=== PATIENT | male | born 1990 | race Two or more races ===

== ENCOUNTER 2021-01-08 05:50 | Inpatient (IN) | payer OTHER ==
[~2021-01-08] VITALS: Ht 160 cm; Wt 70.5 kg
[2021-01-08 06:44] LABS: BASOPHILS % (AUTO) 0.7 % (0.0-2.0); EOSINOPHILS % (AUTO) 0.8 % (1.0-6.0); HEMATOCRIT 43.1 % (41-53); HEMOGLOBIN 14.4 g/dL (13.5-17.5); LYMPHOCYTES # (AUTO) 2.4 K/uL (1.0-4.8); LYMPHOCYTES % (AUTO) 27.4 % (22.0-44.0); MEAN CORPUSCULAR HEMOGLOBIN 30.4 pg (26.0-34.0); MEAN CORPUSCULAR HGB CONC 33.4 G/dL (31.0-37.0); MEAN CORPUSCULAR VOLUME 91 fL (80-100); MONOCYTES # (AUTO) 0.7 K/uL (0.1-1.0); MONOCYTES % (AUTO) 8.1 % (2.0-9.0); NEUTROPHILS # (AUTO) 5.6 K/uL (1.8-7.7); PLATELET COUNT (AUTO) 336 K/uL (150-450); RED BLOOD CELL COUNT(AUTO) 4.73 MIL/uL (4.50-5.90); RED CELL DISTRIBUTION WIDTH 14.2 % (11.5-14.5)
[2021-01-08 06:55] LABS: ANION GAP 7 mmol/L (8-16); CALCIUM, TOTAL 8.7 mg/dL (8.8-10.5); CARBON DIOXIDE 28 mmol/L (22-29); CHLORIDE 105 mmol/L (98-107); CREATININE 0.77 mg/dL (0.60-1.30); GLOMERULAR FILTR. RATE CALC > 60 mL/min (>60); GLUCOSE,RANDOM 96 mg/dL (70-110); POTASSIUM 4.4 mmol/L (3.5-5.1); SODIUM SERUM 140 mmol/L (136-145); UREA NITROGEN, BLOOD 18 mg/dL (7-18)
[2021-01-08 07:05] LABS: COVID AG,FIA SOURCE NASOPHARYNGEAL
[2021-01-08 07:09] LABS: ALANINE AMINOTRANSFERASE 26 U/L (12-78); ALBUMIN 3.3 g/dL (3.4-5.0); ALKALINE PHOSPHATASE 62 U/L (46-116); ASPARTATE AMINOTRANSFERASE 12 U/L (15-37); BILIRUBIN,TOTAL 0.5 mg/dL (0.1-1.0); TOTAL PROTEIN, SERUM 7.1 g/dL (6.4-8.2)
[2021-01-08] MEDS ORDERED: ONDANSETRON HCL 4 MG/2 ML VIAL IVP PRN ×3 (07:45→15:45)
[2021-01-08] MEDS ORDERED: ACETAMINOPHEN 325 MG TABLET PO PRN ×5 (07:45→15:45)
[2021-01-08] MEDS ORDERED: 0.9% SODIUM CHLORIDE 10 ML SYRINGE IVP PRN (07:45)
[2021-01-08 09:19] VITALS: BP 109/75
[2021-01-08] MEDS ORDERED: PROMETHAZINE HCL 25 MG TABLET PO PRN ×2 (11:00→15:45)
[2021-01-08] MEDS ORDERED: IPRATROPIUM BROMIDE 0.5 MG/2.5 ML NEB SOLUTION NEB PRN ×2 (11:00→15:45)
[2021-01-08] MEDS ORDERED: TraZODone HCL 50 MG TABLET PO PRN ×2 (11:00→15:45)
[2021-01-08] MEDS ORDERED: DICYCLOMINE HCL 10 MG CAPSULE PO PRN ×2 (11:00→15:45)
[2021-01-08] MEDS ORDERED: BACLOFEN 10 MG TABLET PO PRN (11:00)
[2021-01-08] MEDS ORDERED: ALBUTEROL SULFATE 2.5 MG/0.5 ML NEB SOLUTION NEB PRN ×2 (11:00→15:45)
[2021-01-08] MEDS ORDERED: BISACODYL 10 MG RECTAL RECTAL SUPPOSITORY PR PRN ×2 (11:00→15:45)
[2021-01-08] MEDS ORDERED: CloNIDine HCL 0.1 MG TABLET PO PRN ×2 (11:00→15:45)
[2021-01-08] MEDS ORDERED: ZOLPIDEM TARTRATE 5 MG TABLET PO PRN ×2 (11:00→15:45)
[2021-01-08] MEDS ORDERED: HydrOXYzine PAMOATE 50 MG CAPSULE PO PRN (11:00)
[2021-01-08] MEDS ORDERED: MAGNESIUM HYDROXIDE SUSPENSION 30 ML UDCUP PO PRN ×2 (11:00→15:45)
[2021-01-08] MEDS ORDERED: LOPERAMIDE HCL 2 MG/15 ML SUSPENSION UDCUP PO PRN ×2 (11:00→15:45)
[2021-01-08] MEDS ORDERED: MAG HYDROX/AL HYDROX/SIMETH ES 30 ML SUSPENSION UDCUP PO PRN ×2 (11:00→15:45)
[2021-01-08] MEDS ORDERED: IBUPROFEN 600 MG TABLET PO PRN (11:00)
[2021-01-08] MEDS: SODIUM CHLORIDE 0.45% 1,000 ML IV SCH ×2 (11:22→23:17)
[2021-01-08] MEDS ORDERED: SODIUM CHLORIDE 0.45% 1,000 ML IV SCH (15:45)
[2021-01-08] MEDS ORDERED: ROPINIRole HCL 0.25 MG TABLET PO ONE (15:45)
[2021-01-08] MEDS ORDERED: HEPARIN SODIUM,PORCINE 5,000 UNITS/ML VIAL SQ SCH (16:00)
[2021-01-08] MEDS: HEPARIN SODIUM,PORCINE 5,000 UNITS/ML VIAL SQ SCH ×2 (16:24→23:16)
[2021-01-08 16:41] VITALS: BP 114/82
[2021-01-08] MEDS: DOCUSATE SODIUM 100 MG CAPSULE PO SCH (20:21)
[2021-01-08] MEDS: ROPINIRole HCL 0.25 MG TABLET PO SCH (20:21)
[2021-01-08 20:30] VITALS: BP 117/75
[2021-01-08] MEDS ORDERED: DOCUSATE SODIUM 100 MG CAPSULE PO SCH (21:00)
[2021-01-08] MEDS: HydrOXYzine PAMOATE 50 MG CAPSULE PO PRN (21:36)
[2021-01-08 22:17] LABS: AMPHET/METH SCREEN,URINE POSITIVE (NEGATIVE); BARBITURATE SCREEN, URINE NEGATIVE (NEGATIVE); BENZODIAZEPINES SCREEN,URINE NEGATIVE (NEGATIVE); CANNABINOID SCREEN,URINE POSITIVE (NEGATIVE); COCAINE SCREEN,URINE NEGATIVE (NEGATIVE); METHADONE SCREEN, URINE NEGATIVE (NEGATIVE); OPIATE SCREEN,URINE NEGATIVE (NEGATIVE)
[2021-01-08 22:21] LABS: PHENCYCLIDINE SCREEN,URINE NEGATIVE (NEGATIVE)
[2021-01-08] MEDS: BACLOFEN 10 MG TABLET PO PRN (23:17)
[2021-01-09] MEDS: DOCUSATE SODIUM 100 MG CAPSULE PO SCH ×2 (07:51→20:44)
[2021-01-09] MEDS: HEPARIN SODIUM,PORCINE 5,000 UNITS/ML VIAL SQ SCH ×3 (07:53→23:47)
[2021-01-09] MEDS: IBUPROFEN 600 MG TABLET PO PRN ×2 (08:12→20:44)
[2021-01-09] MEDS: LORazepam 1 MG TABLET PO PRN ×2 (08:12→15:53)
[2021-01-09 08:15] VITALS: BP 114/66
[2021-01-09] MEDS: SODIUM CHLORIDE 0.45% 1,000 ML IV SCH (11:59)
[2021-01-09 15:50] VITALS: BP 109/70
[2021-01-09] MEDS ORDERED: LORazepam 1 MG TABLET PO PRN (17:45)
[2021-01-09 20:35] VITALS: BP 109/64
[2021-01-09] MEDS: ROPINIRole HCL 0.25 MG TABLET PO SCH (20:44)
[2021-01-09] MEDS: ZOLPIDEM TARTRATE 10 MG TABLET PO PRN (20:48)
[2021-01-10 05:45] VITALS: BP 109/63
[2021-01-10] MEDS: HEPARIN SODIUM,PORCINE 5,000 UNITS/ML VIAL SQ SCH ×3 (07:51→22:45)
[2021-01-10] MEDS: DOCUSATE SODIUM 100 MG CAPSULE PO SCH ×2 (07:51→20:48)
[2021-01-10] MEDS: BACLOFEN 10 MG TABLET PO PRN (07:56)
[2021-01-10 08:08] VITALS: BP 116/75
[2021-01-10] MEDS: IBUPROFEN 600 MG TABLET PO PRN ×2 (11:22→20:49)
[2021-01-10] MEDS ORDERED: KETOROLAC TROMETHAMINE 15 MG/ML VIAL IVP PRN (14:30)
[2021-01-10 20:05] VITALS: BP 111/71
[2021-01-10] MEDS: ZOLPIDEM TARTRATE 10 MG TABLET PO PRN (20:48)
[2021-01-10] MEDS: ROPINIRole HCL 0.25 MG TABLET PO SCH (20:48)
[2021-01-10] MEDS: HydrOXYzine PAMOATE 50 MG CAPSULE PO PRN (20:49)
[2021-01-11 04:00] VITALS: BP 113/68
[2021-01-11] MEDS ORDERED: ROPI0.2535 PO (07:53)
[2021-01-11 08:02] VITALS: BP 110/64
[2021-01-11] MEDS: IBUPROFEN 600 MG TABLET PO PRN (08:03)
[2021-01-11] MEDS: HEPARIN SODIUM,PORCINE 5,000 UNITS/ML VIAL SQ SCH ×2 (08:03→16:00)
[2021-01-11] MEDS: HydrOXYzine PAMOATE 50 MG CAPSULE PO PRN (08:05)
[2021-01-11] MEDS: DOCUSATE SODIUM 100 MG CAPSULE PO SCH (08:06)
[2021-01-11] MEDS: BACLOFEN 10 MG TABLET PO PRN (08:06)
[2021-01-11] MEDS ORDERED: SODIUM CHLORIDE 0.9% 1,000 ML ONE (16:46)
== END 2021-01-11 17:40 | DRG 897 ==
LOC: EMS 05:53 → 6S 09:00
PROVIDERS: ADMIT Hospitalist; ATTEND Hospitalist
DX: F11.10 Opioid abuse, uncomplicated (principal); F41.9 Anxiety disorder, unspecified; Z20.822 Contact with and (suspected) exposure to COVID-19
CPT/HCPCS: 80053; 85025; 99285; G0480; J1644; J1885; J7030